=== PATIENT | male | born 1990 | race Two or more races ===

== ENCOUNTER 2018-07-04 12:39 | Emergency (ER) | payer SELFPAY ==
[~2018-07-04] VITALS: Ht 165.1 cm; Wt 72.6 kg
[2018-07-04 12:54] VITALS: BP 127/80
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
[2018-07-04] MEDS ORDERED: LIDOCAINE 1%-EPI 1:100,000 20 ML VIAL ONE (13:29)
== END 2018-07-04 15:33 | disposition home or self-care (01) ==
LOC: ER 12:41
DX: S61.411A Laceration without foreign body of right hand, initial encounter (principal); W31.2XXA Contact with powered woodworking and forming machines, initial encounter; Y93.89 Activity, other specified; Y92.89 Other specified places as the place of occurrence of the external cause; Y99.8 Other external cause status
CPT/HCPCS: A6402; A6403; J3490

== ENCOUNTER 2018-07-13 11:44 | Emergency (ER) | payer SELFPAY ==
[~2018-07-13] VITALS: Ht 165.1 cm; Wt 72.6 kg
[2018-07-13 11:44] VITALS: BP 118/76
== END 2018-07-13 12:55 | disposition home or self-care (01) ==
LOC: ER 11:46
DX: S61.411D Laceration without foreign body of right hand, subsequent encounter (principal); X58.XXXD Exposure to other specified factors, subsequent encounter
CPT/HCPCS: Z7502

== ENCOUNTER 2018-07-18 11:54 | Emergency (ER) | payer SELFPAY ==
[~2018-07-18] VITALS: Ht 165.1 cm; Wt 72.6 kg
[2018-07-18 12:11] VITALS: BP 112/69
== END 2018-07-18 12:27 | disposition home or self-care (01) ==
LOC: ER 11:57
DX: T81.49XA Infection following a procedure, other surgical site, initial encounter (principal); S61.411D Laceration without foreign body of right hand, subsequent encounter; X58.XXXD Exposure to other specified factors, subsequent encounter
CPT/HCPCS: 99283; A4606

== ENCOUNTER 2019-06-16 10:50 | Emergency (ER) | payer SELFPAY ==
[~2019-06-16] VITALS: Ht 165.1 cm; Wt 68.0 kg
--- NOTE | 2019-06-16 10:56 | NUR ---
CAME IN FOR COUGH, CHILLS, GENERALIZED BODY ACHES AND HEADACHE x 2 DAYS. TO ER BED 10, HOOKED TO BP MONITOR AND POX, CHANGED TO HOSP GOWN, WARM BLANKET PROVIDED, PATIENT AOx 4, BREATHING EVEN AND UNLABORED, NAD NOTED. AWAITING MD ARORA.
--- NOTE | 2019-06-16 12:04 | NUR ---
DR COTE AT BEDSIDE FOR EVAL
[2019-06-16] MEDS ORDERED: ACETAMINOPHEN 325 MG TABLET ONE (12:15)
[2019-06-16] MEDS ORDERED: ONDANSETRON HCL/PF 4 MG/2 ML VIAL ONE (12:15)
[2019-06-16] MEDS ORDERED: KETOROLAC TROMETHAMINE 15 MG/ML VIAL ONE (12:15)
[2019-06-16] MEDS ORDERED: IV NS 0.9% 1,000 ML BAG IV ONE (12:30)
[2019-06-16] MEDS ORDERED: ONDANSETRON HCL/PF 4 MG/2 ML VIAL IV ONE (12:30)
[2019-06-16] MEDS ORDERED: ACETAMINOPHEN 325 MG TABLET PO ONE (12:30)
[2019-06-16] MEDS ORDERED: KETOROLAC TROMETHAMINE INJ 30 MG/ML VIAL IV ONE (12:30)
--- NOTE | 2019-06-16 12:58 | NUR ---
IV removed. Catheter intact and site benign. Pressure and 4x4 applied to site. No bleeding noted.Patient discharged to home in stable condition. Written and verbal after care instructions given. Patient verbalizes understanding of instruction.
[2019-06-16 12:59] VITALS: BP 128/54
== END 2019-06-16 12:59 | disposition home or self-care (01) ==
LOC: ER 10:53
DX: B34.9 Viral infection, unspecified (principal); R11.2 Nausea with vomiting, unspecified; R00.0 Tachycardia, unspecified
CPT/HCPCS: 96361; 96374; 96375; 99283; J1885; J2405; J7030